=== PATIENT | female | born 1950 | race Caucasian/White ===

== ENCOUNTER → 2018-10-10 | Outpatient (CLI) | payer MEDICARE, OTHER ==
[2018-10-10 18:34] LABS: IMMUNOGLOBULIN E 24.2 IU/ML (<100); IMMUNOGLOBULIN M 45.7 MG/DL (40-230)
[2018-10-15 01:34] LABS: D001-IgE D pteronyssinus <0.10 kU/L (Class 0); E001-IgE Cat Epith/Dander < 0.10 kU/L (Class 0); E005-IgE Dog Dander < 0.10 kU/L (Class 0); G002-IgE Bermuda Grass < 0.10 kU/L (Class 0); G008-IgE Kentucky Bluegrass < 0.10 kU/L (Class 0); M001-IgE Penicillium chrysogen < 0.10 kU/L (Class 0); M002 IgE Cladosporium herbaru < 0.10 kU/L (Class 0); M003 IgE Aspergillus fumigatu < 0.10 kU/L (Class 0); M006-IgE Alternaria alternata 0.64 kU/L (Class II); T001-IgE Maple/Box Elder < 0.10 kU/L (Class 0); T003-IgE Common Silver Birch < 0.10 kU/L (Class 0); T006-IgE Cedar, Mountain < 0.10 kU/L (Class 0); T007-IgE Oak, White < 0.10 kU/L (Class 0); T008-IgE Elm, American < 0.10 kU/L (Class 0); T015-IgE Ash, White < 0.10 kU/L (Class 0); T041-IgE Hickory, White < 0.10 kU/L (Class 0); T070-IgE White Mulberry < 0.10 kU/L (Class 0); W001-IgE Ragweed, Short < 0.10 kU/L (Class 0); W009-IgE Plantain, English < 0.10 kU/L (Class 0); W014-IgE Pigweed, Rough < 0.10 kU/L (Class 0); W018-IgE Sheep Sorrel < 0.10 kU/L (Class 0)
== END ==
LOC: M SMT 14:27
PROVIDERS: ATTEND Internal Medicine Pulmonary Disease
DX: R05 Cough (principal); J30.9 Allergic rhinitis, unspecified

== ENCOUNTER → 2018-12-09 | Outpatient (CLI) | payer MEDICARE, OTHER ==
--- NOTE | 2018-12-09 15:43 | NUR ---
Pt referred for Modified Barium Swallow to r/o aspiration as a possible cause of respiratory issues. Evaluation completed with the following consistencies: thin liquids via straw & cup sips, pureed solids, soft solids mixed consistency, and regular solids. Pt's oral and pharyngeal phases were within normal limits, no aspiration or penetration was observed. Pt reports known history of esophageal disorders for which she is followed by [facility] in [place]. No evidence of oral or pharyngeal phase dysphagia. Recommend continue regular solids and thin liquids. Please contact [facility] w/ any questions regarding this pt. Thank you. Addendum: 12/09/[address] [facility] Amended: Links added.
--- NOTE | 2018-12-09 17:33 | REP ---
COOKIE SWALLOW The procedure was performed under the direct supervision of Dr. Odell. The procedure was performed with Laura Pelletier speech pathology present. 5 ml aliquots of pudding, thin, mixed fruit, and solid consistency barium was administered. There is no evidence of penetration or aspiration. The detailed report of this examination will be provided by speech pathology. 0.6 minutes of fluoroscopy time was utilized for this procedure. Reviewed by GILDARDO Mccarthy 12/09/2018 04:06 P Electronically Signed by Ramiro Odell MD 12/09/2018 05:24 P
== END ==
LOC: M ST 13:11
PROVIDERS: ATTEND Internal Medicine Pulmonary Disease
DX: R05 Cough (principal)

== ENCOUNTER → 2018-12-23 | Outpatient (CLI) | payer MEDICARE, OTHER ==
[2018-12-23 17:34] LABS: BASO # 0.1 10^3/uL (0.0-0.2); BASO % 0.7 % (0.0-1.0); EOS # 0.3 10^3/uL (0.0-0.50); EOS % 3.3 % (0.0-3.0); HEMATOCRIT 35.9 % (36.0-47.0); LYMPH # 2.2 10^3/uL (1.5-4.5); LYMPH % 27.1 % (24.0-44.0); MEAN CORPUSCULAR HEMOGLOBIN 29.3 pg (27.0-33.0); MEAN CORPUSCULAR HGB CONC 33.4 g/dl (32.0-36.5); MEAN CORPUSCULAR VOLUME 87.6 fl (80.0-96.0); MONO # 0.7 10^3/uL (0.0-0.8); MONO % 9.1 % (0.0-5.0); NEUTROPHILS # 4.8 10^3/uL (1.8-7.7); NEUTROPHILS % 59.4 % (36.0-66.0); PLATELET COUNT, AUTOMATED 309 10^3/uL (150-450); WHITE BLOOD COUNT 8.1 10^3/uL (4.0-10.0)
[2018-12-23 17:52] LABS: INR 0.95; PROTHROMBIN TIME 12.8 SECONDS (12.1-14.4)
[2018-12-23 18:01] LABS: BLOOD UREA NITROGEN 10 MG/DL (7-18); CALCIUM LEVEL 8.7 MG/DL (8.8-10.2); CARBON DIOXIDE LEVEL 27 MEQ/L (21-32); CHLORIDE LEVEL 108 MEQ/L (98-107); CREATININE FOR GFR 0.73 MG/DL (0.55-1.30); GLOMERULAR FILTRATION RATE > 60.0 (>45); GLUCOSE, FASTING 104 MG/DL (70-100); POTASSIUM SERUM 3.2 MEQ/L (3.5-5.1); SODIUM LEVEL 141 MEQ/L (136-145)
[2018-12-24 07:34] LABS: ERYTHROCYTE SEDIMENTATION RATE 11 mm/hr (0-30)
== END ==
LOC: M LAB 16:48
PROVIDERS: ATTEND Internal Medicine Pulmonary Disease
DX: R06.00 Dyspnea, unspecified (principal)

== ENCOUNTER 2019-01-01 11:36 | Day surgery (SDC) | payer MEDICARE, OTHER ==
[~2019-01-01] VITALS: Ht 167.6 cm; Wt 98.4 kg
[~2019-01-01 11:36] MED LIST: ALBU83IN; AMMO12CR7 TOP; BREO1INH3; CALCCAP4 PO; CENTTAB PO; ENAL10TA10; ESTR0.5T3 PO; FLON1SPR; FLUO10CA8 PO; LEVOTAB10 PO; OMEP40CA2 PO; PROBCAP14 PO; SING10TA32 PO; ZANT300T9 PO
[2019-01-01] MEDS ORDERED: MIDAZOLAM INJ 2 MG/2 ML VIAL (J2250) ONE (11:37)
[2019-01-01] MEDS ORDERED: fentaNYL 100 MCG/2 ML INJECTION (J3010) ONE (11:37)
[2019-01-01] MEDS ORDERED: LIDOCAINE 4% INJ 5 ML AMP ONE (11:37)
[2019-01-01] MEDS ORDERED: LIDOCAINE 1% MDV 20ML VIAL As Ordered ONE (12:46)
[2019-01-01] MEDS ORDERED: LIDOCAINE VISCOUS 2% SOLN 15ML UDC As Ordered ONE (12:46)
[2019-01-01] MEDS ORDERED: EPINEPHrine 1MG/10ML SYRINGE 1.5IN As Ordered ONE (12:46)
[2019-01-01] MEDS ORDERED: LIDOCAINE 4% INJ 5 ML AMP As Ordered ONE (12:47)
[2019-01-01] MEDS ORDERED: CETACAINE SPRAY 5GM As Ordered ONE (12:47)
[2019-01-01] MEDS ORDERED: ALBUTEROL SULFATE 2.5 MG/0.5 ML INH NEB SOLN INH ONE (13:00)
[2019-01-01] MEDS ORDERED: LIDOCAINE 4% INJ 5 ML AMP INH ONE (13:00)
[2019-01-01] MEDS ORDERED: D5W 1,000 ML IV SCH (13:00)
[2019-01-01] MEDS ORDERED: fentaNYL 100 MCG/2 ML INJECTION (J3010) IV ONE (13:00)
[2019-01-01] MEDS ORDERED: MIDAZOLAM INJ 2 MG/2 ML VIAL (J2250) IV ONE (13:00)
[2019-01-01 14:45] VITALS: BP 140/72
--- NOTE | 2019-01-01 14:46 | ROOR ---
Patient Name: Sondra Vee Procedure Date: 01/01/2019 1:22 PM Date of : 1950 Admit Type: Outpatient Age: 68 Room: [facility] Note Status: Finalized Attending MD: Shikha Mao MD Procedure: Bronchoscopy Indications: Chronic cough with abnormal CT Providers: Shikha Mao MD (Doctor) Referring MD: 1. No Referring Physician 1. No Referring Physician, Admin. (Referring MD) Requesting Physician: Medicines: Lidocaine 4% via nebulizer with Albuterol 3 mg, Fentanyl 100 mcg IV, Midazolam 5 mg IV, Lidocaine 1% applied to cords 4 mL, Lidocaine 1% applied to the tracheobronchial tree 4 mL, Oxygen 2 L/min, Cetacaine topical Complications: No immediate complications Procedure: Pre-Anesthesia Assessment: - Prior to the procedure, a History and Physical was performed, and patient medications and allergies were reviewed. The patient's tolerance of previous anesthesia was also reviewed. The risks and benefits of the procedure and the sedation options and risks were discussed with the patient. All questions were answered, and informed consent was obtained. Prior Anticoagulants: The patient has taken no previous anticoagulant or antiplatelet agents. ASA Grade Assessment: II - A patient with mild systemic disease. After reviewing the risks and benefits, the patient was deemed in satisfactory condition to undergo the procedure. The Bronchoscope was introduced through the mouth and advanced to the tracheobronchial tree of both lungs. The procedure was accomplished without difficulty. The patient tolerated the procedure well. Findings: Respiratory tract: The larynx is normal. The vocal cords appear normal, there were no vocal cord polyps noted. The subglottic space is normal, but the trachea is not normal. The jeremy is sharp. The entire tracheobronchial tree was examined to at least the first subsegmental level. Nodular mucosa was found in the trachea on the cartilagenous rings. There was also submucosal nodules throughout the tracheobronchial tree noted in RUL, RML and in WINSOME and lesser extend in the lower lobe bronchi. Endobronchial biopsies were performed in the medial segment of the right middle lobe using forceps and sent for histopathology examination. Estimated blood loss: minimal. BAL was performed in the RML medial segment (B5) of the lung and sent for cell count, bacterial culture, and fungal & AFB analysis and cytology. The return was cloudy. Mucous plugs were present in the return fluid. Impression: - Chronic cough with abnormal CT - Nodular mucosa was visualized in the trachea and in bilateral upper lobes and RML and lesser extent in lower lobes. - An endobronchial biopsy was performed. - Bronchoalveolar lavage was performed. Recommendation: - Follow up with bronchoscopist as previously scheduled. Attending Participation: I personally performed the entire procedure. Shikha Mao MD 01/01/2019 2:45:51 PM Number of Addenda: 0 Note Initiated On: 01/01/2019 1:22 PM
--- NOTE | 2019-01-01 14:59 | REP ---
Chest one-view HISTORY: Post bronchoscopy Comparison: None Linear density is present in the left lower lobe consistent with atelectasis or scar. The right lung is clear. The heart is normal in size. The pulmonary vasculature is normal in appearance. Impression: Left lower lobe atelectasis or scar. Electronically Signed by Remington Lugo MD 01/01/2019 02:51 P
[2019-01-02 14:05] LABS: SOURCE RIGHT MIDDLE LOBE
[2019-01-02 14:06] LABS: APPEARANCE CLOTTED (CLEAR); COLOR PINK (COLORLESS)
[2019-02-19] MEDS ORDERED: SPIR-10 PO (10:21)
[2019-02-19] MEDS ORDERED: MUCI600T31 PO (10:21)
[2019-02-19] MEDS ORDERED: TYLENOL PM PO (10:21)
[2019-02-19] MEDS ORDERED: LOSA25TA14 PO (10:21)
== END 2019-01-01 14:56 | disposition home or self-care (01) ==
LOC: M OPP 11:36
PROVIDERS: ATTEND Internal Medicine Pulmonary Disease
DX: R05 Cough (principal); R91.8 Other nonspecific abnormal finding of lung field; J39.8 Other specified diseases of upper respiratory tract
CPT/HCPCS: 31624; 31625; 71045; 87070; 87102; 87116; 87205; 87206; 88108; 88305; 88312; 88313; 89050; J2250; J3010

== ENCOUNTER → 2019-01-29 | Outpatient (REF) | payer MEDICARE, OTHER | LOC: M LAB LCGH 11:52 | PROVIDERS: ATTEND Neuromusculoskeletal Medicine & OMM | DX: E04.1 Nontoxic single thyroid nodule (principal) ==

== ENCOUNTER 2019-02-20 07:31 | Day surgery (SDC) | payer MEDICARE, OTHER ==
[~2019-02-20] VITALS: Ht 167.6 cm; Wt 98.0 kg
[~2019-02-20 07:31] MED LIST changes: +LIDOCAINE 1% MDV 20ML VIAL SQ PRN; +LOSA25TA14 PO; +MUCI600T31 PO; +SPIR-10 PO; +TYLENOL PM PO
[2019-02-20] MEDS ORDERED: LR 1,000 ML IV ONE (07:45)
[2019-02-20] MEDS ORDERED: PROPOFOL 200 MG/20 ML VIAL As Ordered ONE (07:57)
[2019-02-20] MEDS ORDERED: LIDOCAINE 2% INJ 100 MG/5 ML SDV (FOR ANES.) As Ordered ONE (07:57)
[2019-02-20] MEDS ORDERED: dexameTHASONE 4 MG/ML 1ML VIAL (J1100) As Ordered ONE (07:57)
[2019-02-20] MEDS ORDERED: ROCURONIUM BROMIDE 50 MG/5 ML VIAL As Ordered ONE (07:57)
[2019-02-20] MEDS ORDERED: ONDANSETRON 4MG/2ML VIAL (J2405) As Ordered ONE (07:57)
[2019-02-20] MEDS ORDERED: fentaNYL 250 MCG/5 ML INJECTION (J3010) As Ordered ONE (07:58)
[2019-02-20] MEDS ORDERED: MIDAZOLAM INJ 2 MG/2 ML VIAL (J2250) As Ordered ONE (07:58)
[2019-02-20] MEDS ORDERED: LIDOCAINE 1% SDV INJ 30 ML VIAL As Ordered ONE (08:54)
[2019-02-20] MEDS ORDERED: EPINEPHrine 1MG/10ML SYRINGE 1.5IN As Ordered ONE (08:54)
[2019-02-20] MEDS ORDERED: THROMBIN SOLN 5,000 UNITS VIAL As Ordered ONE (08:54)
[2019-02-20] MEDS ORDERED: LIDOCAINE VISCOUS 2% SOLN 15ML UDC As Ordered ONE (08:54)
[2019-02-20] MEDS ORDERED: SUGAMMADEX SODIUM 500 MG/5 ML VIAL (BRIDION) As Ordered ONE (09:27)
[2019-02-20] MEDS ORDERED: ONDANSETRON 4MG/2ML VIAL (J2405) IV PRN (10:15)
[2019-02-20] MEDS ORDERED: LR 1,000 ML IV SCH (10:15)
[2019-02-20] MEDS ORDERED: fentaNYL 100 MCG/2 ML INJECTION (J3010) IV PRN (10:15)
--- NOTE | 2019-02-20 10:35 | ROOR ---
Patient Name: Sondra Vee Procedure Date: 02/20/2019 9:02 AM Date of : 1950 Admit Type: Outpatient Age: 68 Room: [facility] Note Status: Finalized Attending MD: Shikha Mao MD Procedure: Bronchoscopy Indications: Endobronchial nodule Providers: Shikha Mao MD (Doctor) Referring MD: 1. No Referring Physician 1. No Referring Physician, Admin. (Referring MD) Requesting Physician: Medicines: General Anesthesia, Cetacaine topical Complications: No immediate complications. Estimated blood loss: Minimal Procedure: Pre-Anesthesia Assessment: - Prior to the procedure, a History and Physical was performed, and patient medications and allergies were reviewed. The patient's tolerance of previous anesthesia was also reviewed. The risks and benefits of the procedure and the sedation options and risks were discussed with the patient. All questions were answered, and informed consent was obtained. Prior Anticoagulants: The patient has taken no previous anticoagulant or antiplatelet agents. ASA Grade Assessment: III - A patient with severe systemic disease. After reviewing the risks and benefits, the patient was deemed in satisfactory condition to undergo the procedure. The Bronchoscope was introduced through the mouth, via the endotracheal tube (the patient was intubated for the procedure) and advanced to the tracheobronchial tree of both lungs. The procedure was accomplished without difficulty. The patient tolerated the procedure well. Findings: Bilateral Lung Abnormalities: There were white/couch raised nonobstructing submucosal endobronchial lesions found throughout the tracheobronchial tree. BAL was performed in the RML lateral segment (B5) of the lung and sent for cell count, bacterial culture, fungal & AFB analysis and cytology. The return was cloudy. There were no mucoid plugs in the return fluid. Endobronchial biopsies were performed in the lateral segment of the right middle lobe using forceps and sent for routine cytology. Endobronchial biopsies were performed in the anterior segment of the right upper lobe using forceps and sent for routine cytology. BAL was performed in the RUL anterior segment (B3) of the lung and sent for cell count, bacterial culture, fungal & AFB analysis and cytology. The return was blood-tinged. Mucous plugs were present in the return fluid. Endobronchial biopsies were performed in the left lower lobe using forceps and sent for routine cytology. BAL was performed in the LLL superior segment (B6) of the lung and sent for cell count, bacterial culture, fungal & AFB analysis and cytology. The return was blood-tinged. There were no mucoid plugs in the return fluid. Impression: - Endobronchial nodules - Submucosal lesions were found throughout the tracheobronchial tree. - Bronchoalveolar lavage was performed. - An endobronchial biopsy was performed. - An endobronchial biopsy was performed. - Bronchoalveolar lavage was performed. - An endobronchial biopsy was performed. - Bronchoalveolar lavage was performed. Recommendation: - Await test results. Attending Participation: I personally performed the entire procedure. Shikha Mao MD 02/20/2019 10:34:50 AM Number of Addenda: 0 Note Initiated On: 02/20/2019 9:02 AM
[2019-02-20 11:37] VITALS: BP 138/64
[2019-02-21 12:37] LABS: SOURCE RIGHT MIDDLE LOBE
[2019-02-21 13:23] LABS: APPEARANCE CLOTTED (CLEAR); COLOR PINK (COLORLESS); SOURCE LEFT LOWER LOBE
[2019-02-21 13:25] LABS: APPEARANCE CLOTTED (CLEAR); COLOR PINK (COLORLESS)
[2019-02-21 13:26] LABS: APPEARANCE CLOTTED (CLEAR); COLOR PINK (COLORLESS); SOURCE RIGHT UPPER LOBE
[2019-02-21 13:38] LABS: MONOCYTES/MACROPHAGES, BAL 9 %
[2019-02-21 13:42] LABS: MONOCYTES/MACROPHAGES, BAL 53 %
[2019-02-21 13:45] LABS: MONOCYTES/MACROPHAGES, BAL 41 %
== END 2019-02-20 11:45 | disposition home or self-care (01) ==
LOC: M SDC 07:31
PROVIDERS: ATTEND Internal Medicine Pulmonary Disease
DX: R91.1 Solitary pulmonary nodule (principal); R06.02 Shortness of breath; I10 Essential (primary) hypertension; K44.9 Diaphragmatic hernia without obstruction or gangrene; K22.70 Barrett's esophagus without dysplasia; K22.2 Esophageal obstruction; K21.9 Gastro-esophageal reflux disease without esophagitis; Z79.51 Long term (current) use of inhaled steroids; D64.9 Anemia, unspecified; Z79.899 Other long term (current) drug therapy
CPT/HCPCS: 31624; 31625; 87070; 87102; 87116; 87205; 87206; 88108; 88305; 88313; 88342; 89051; J1100; J2250; J2405; J3010

== ENCOUNTER → 2019-02-27 | Outpatient (REF) | payer MEDICARE, OTHER ==
[~2019-02-27] MED LIST changes: -LIDOCAINE 1% MDV 20ML VIAL SQ PRN
== END ==
LOC: M LAB REF 17:18
PROVIDERS: ATTEND Internal Medicine Endocrinology, Diabetes & Metabolism
DX: E04.1 Nontoxic single thyroid nodule (principal)

== ENCOUNTER → 2019-03-31 | Outpatient (REF) | payer MEDICARE, OTHER | LOC: M LAB REF 17:23 | PROVIDERS: ATTEND Internal Medicine Endocrinology, Diabetes & Metabolism | DX: E04.1 Nontoxic single thyroid nodule (principal) ==

== ENCOUNTER → 2025-05-01 | Outpatient (CLI) | payer MEDICARE, OTHER ==
[~2025-05-01] MED LIST changes: +ALBU2.5V10; -ALBU83IN; +AMMO12CR4 TOP; -AMMO12CR7 TOP; +FLUO-290 PO; -FLUO10CA8 PO; +LOSA25TA13 PO; -LOSA25TA14 PO; +MONT-5 PO; -OMEP40CA2 PO; +OMEP40CA4 PO; -SING10TA32 PO
== END ==
LOC: M SOG 07:34
PROVIDERS: ATTEND Physician Assistant
DX: M79.644 Pain in right finger(s) (principal)